=== PATIENT | female | born 1990 | race Two or more races ===

== ENCOUNTER 2020-10-05 10:55 | Day surgery (SDC) | payer OTHER ==
[~2020-10-05] VITALS: Ht 157.5 cm; Wt 111.7 kg
[2020-10-05] MEDS ORDERED: IBUP-11 PO (11:57)
[2020-10-05] MEDS ORDERED: CHLORHEXIDINE 15 ML UDC PO ONE (12:00)
[2020-10-05] MEDS ORDERED: LACTATED RINGERS 1,000 ML IV SCH (12:00)
[2020-10-05] MEDS ORDERED: MIDAZOLAM 1 MG/ML, 2ML ONE (12:01)
[2020-10-05] MEDS ORDERED: ROCURONIUM 10MG/ML,5ML ONE (12:01)
[2020-10-05] MEDS ORDERED: FENTANYL PF 250 MCG/5ML ONE (12:01)
[2020-10-05 12:08] VITALS: BP 130/85
[2020-10-05 12:10] LABS: BASOPHILS % (AUTO) 1 % (0-1); EOSINOPHILS % (AUTO) 4 % (1-7); LYMPHOCYTES % (AUTO) 49 % (22-44); MEAN CORPUSCULAR HEMOGLOBIN 32.1 pg (27.0-34.8); MEAN CORPUSCULAR HGB CONC 34.3 g/dL (32.4-35.8); MEAN PLATELET VOLUME 10.6 fL (7.4-10.4); MONOCYTES % (AUTO) 5 % (2-9); NEUTROPHILS % (AUTO) 42 % (42-75); PLATELET COUNT 190 x10^3/uL (130-400); RED BLOOD COUNT 4.22 x10^6/uL (3.82-5.3); RED CELL DISTRIBUTION WIDTH 12.8 % (9.6-15.2)
[2020-10-05] MEDS ORDERED: EPINEPHRINE 1 MG/ML, 1ML ONE (12:14)
[2020-10-05] MEDS ORDERED: BUPIVACAINE/PF 0.25% ONE (12:14)
[2020-10-05] MEDS ORDERED: FLUORESCEIN SODIUM 500 MG/5 ML ONE (12:14)
[2020-10-05 12:19] LABS: HCG UR SG 1.024 (1.003-1.030)
[2020-10-05 12:21] LABS: ANION GAP 5 mmol/L (5-15); CALCIUM 8.8 mg/dL (8.5-10.1); CHLORIDE 110 mmol/L (98-107); CREATININE 0.44 mg/dL (0.55-1.02)
[2020-10-05 12:22] LABS: ALANINE AMINOTRANSFERASE 32 U/L (12-78); ALBUMIN 3.6 g/dL (3.4-5.0)
[2020-10-05 12:24] LABS: ALKALINE PHOSPHATASE 59 U/L (45-117); BILIRUBIN,TOTAL 0.3 mg/dL (0.2-1.0); TOTAL PROTEIN 7.5 g/dL (6.4-8.2)
[2020-10-05] MEDS ORDERED: OXYcodone 5 MG/5 ML ORAL.SOL UDC PO PRN (12:30)
[2020-10-05] MEDS ORDERED: hydrALAzine 20 MG/ML, 1ML IV PRN (12:30)
[2020-10-05] MEDS ORDERED: LABETALOL 5MG/ML, 20ML IV PRN (12:30)
[2020-10-05] MEDS ORDERED: MEPERIDINE/PF 25MG/0.5ML IVPush PRN (12:30)
[2020-10-05] MEDS ORDERED: HYDROmorphone 1 MG/ML, 1ML INJ IVPush PRN (12:30)
[2020-10-05] MEDS ORDERED: PROMETHAZINE 25 MG/ML, 1ML IVPush PRN (12:30)
[2020-10-05] MEDS ORDERED: ONDANSETRON 2MG/ML, 2ML IVPush PRN (12:30)
[2020-10-05] MEDS ORDERED: FENTANYL PF 100 MCG/2ML IV PRN (12:30)
[2020-10-05] MEDS ORDERED: DEXAMETHASONE 4 MG/ML, 1ML ONE ×2 (12:57)
[2020-10-05] MEDS ORDERED: CEFAZOLIN 1,000 MG ONE (12:58)
[2020-10-05] MEDS ORDERED: KETOROLAC 30 MG/1 ML ONE ×2 (13:56)
[2020-10-05] MEDS ORDERED: PROPOFOL 10 MG/ML, 20ML ONE (14:19)
[2020-10-05] MEDS ORDERED: ONDANSETRON 2MG/ML, 2ML ONE (14:19)
[2020-10-05] MEDS ORDERED: NEOSTIGMINE 1 MG/ML, 10ML ONE (14:37)
[2020-10-05] MEDS ORDERED: GLYCOPYRROLATE 0.2MG/1ML, 5ML ONE (14:37)
[2020-10-05] MEDS ORDERED: FUROSEMIDE 20 MG/2 ML ONE (15:02)
[2020-10-05] MEDS ORDERED: OMNIPAQUE 350 MG/ML, 50 ML BOTTLE ONE (15:08)
[2020-10-05] MEDS ORDERED: OMNIPAQUE 350 MG/ML, 50 ML BOTTLE IV ONE (15:45)
[2020-10-05 19:42] LABS: BASOPHILS % (AUTO) 0 % (0-1); EOSINOPHILS % (AUTO) 0 % (1-7); LYMPHOCYTES % (AUTO) 12 % (22-44); MEAN CORPUSCULAR HEMOGLOBIN 31.7 pg (27.0-34.8); MEAN CORPUSCULAR HGB CONC 34.2 g/dL (32.4-35.8); MEAN PLATELET VOLUME 10.3 fL (7.4-10.4); MONOCYTES % (AUTO) 1 % (2-9); NEUTROPHILS % (AUTO) 87 % (42-75); PLATELET COUNT 175 x10^3/uL (130-400); RED BLOOD COUNT 3.86 x10^6/uL (3.82-5.3); RED CELL DISTRIBUTION WIDTH 12.7 % (9.6-15.2)
[2020-10-05 19:53] LABS: ANION GAP 10 mmol/L (5-15); CALCIUM 8.6 mg/dL (8.5-10.1); CHLORIDE 106 mmol/L (98-107)
== END 2020-10-05 20:49 | disposition home or self-care (01) ==
LOC: OUT 10:55
PROVIDERS: ATTEND Obstetrics & Gynecology
DX: N94.6 Dysmenorrhea, unspecified (principal); N92.0 Excessive and frequent menstruation with regular cycle; N83.8 Other noninflammatory disorders of ovary, fallopian tube and broad ligament; N80.0 Endometriosis of uterus; N87.0 Mild cervical dysplasia; N83.292 Other ovarian cyst, left side; G43.909 Migraine, unspecified, not intractable, without status migrainosus; Z20.822 Contact with and (suspected) exposure to COVID-19; Z79.899 Other long term (current) drug therapy; Z98.890 Other specified postprocedural states
CPT/HCPCS: 36415; 52332; 58552; 74420; 80048; 80053; 81025; 85025; 86850; 86900; 87635; 88307; C1758; C1769; C2617; J0171; J0690; J1100; J1885; J1940; J2250; J2405; J2704; J2710; J3010; J7120; Q9967